=== PATIENT | female | born 1965 | race Caucasian/White ===

== ENCOUNTER 2019-05-27 12:23 | Outpatient (CLI) | payer BC, SELFPAY ==
[2019-05-27 12:46] LABS: Basophils # 0.1 10^3/uL (0.0-0.1); Basophils % 0.9 %; Eosinophils # 0.2 10^3/uL (0.0-0.8); Eosinophils % 3.2 %; Hematocrit 43.3 % (37.0-47.0); Hemoglobin 14.3 g/dL (11.5-15.3); Lymphocytes # 1.9 10^3/uL (0.8-4.8); Lymphocytes % 34.3 %; Mean Corpuscular Hemoglobin 29.6 pg (28.0-34.0); Mean Corpuscular Volume 89.6 fL (81-99); Mean Platelet Volume 11.2 fL (7.4-10.4); Monocytes # 0.8 10^3/uL (0.2-0.9); Monocytes % 14.8 %; Neutrophils # 2.5 10^3/uL (1.8-7.7); Neutrophils % 46.4 %; Nucleated Red Blood Cells % 0 %; Platelet Count 232 10^3/cmm (130-400); Red Blood Count 4.83 10^6/uL (4.1-5.3); Red Cell Distribution Width 11.9 % (12.1-15.1); White Blood Count 5.4 10^3/uL (4.0-10.0)
[2019-05-27 13:31] LABS: Alanine Aminotransferase 34 U/L (0-33); Albumin Level 4.6 g/dL (3.5-5.2); Alkaline Phosphatase 61 IU/L (35-105); Anion Gap 15.1 (5-19); Aspartate Amino Transferase 24 U/L (0-32); Blood Urea Nitrogen 16 mg/dL (6-20); C Reactive Protein 0.7 mg/L (0.0-4.9); Calcium 10.4 mg/Dl (8.6-10.0); Carbon Dioxide 27 mmol/L (22-29); Chloride 102 mmol/L (98-107); Erythrocyte Sedimentation Rate 13 mm/hr (0-15); Globulin 3.1 g/dL (1.3-4.6); Glomerular Filtration Rate 87.9 mL/min (90-130); Glucose 94 mg/dL (74-109); Potassium 4.1 mmol/L (3.5-5.1); Sodium 140 mmol/L (136-145); Total Bilirubin 0.2 mg/dL (0.15-1.2); Total Protein 7.7 g/dL (6.6-8.7)
== END 2019-05-27 12:24 | disposition home or self-care (01) ==
LOC: LAB 12:23
PROVIDERS: Family Provider Nurse Practitioner Family; PCP Nurse Practitioner Family; Visit Provider Internal Medicine Rheumatology
DX: M05.79 Rheumatoid arthritis with rheumatoid factor of multiple sites without organ or systems involvement (principal); M07.69 Enteropathic arthropathies, multiple sites
CPT/HCPCS: 80053; 85025; 85651; 86140

== ENCOUNTER → 2019-06-14 09:48 | Outpatient (BNVA) | payer BC, SELFPAY | PROVIDERS: Family Provider Nurse Practitioner Family; PCP Nurse Practitioner Family; Referring Provider Internal Medicine Rheumatology; Visit Provider Internal Medicine Rheumatology | DX: M05.9 Rheumatoid arthritis with rheumatoid factor, unspecified (principal); Z79.899 Other long term (current) drug therapy; M19.041 Primary osteoarthritis, right hand; M19.042 Primary osteoarthritis, left hand; M81.0 Age-related osteoporosis without current pathological fracture; M50.30 Other cervical disc degeneration, unspecified cervical region; M51.36 Other intervertebral disc degeneration, lumbar region; I10 Essential (primary) hypertension; Z87.891 Personal history of nicotine dependence | CPT/HCPCS: 99214 ==

== ENCOUNTER 2019-06-18 12:40 | Outpatient (CLI) | payer BC, SELFPAY ==
--- NOTE | 2019-06-18 14:45 | XR_ITS ---
WS: [id number] Bone mineral density performed on a [employer], 06/18/2019 Clinical data: exterminator steroid use Findings: The first 4 lumbar vertebral bodies demonstrated the bone mineral density of 1.387 g/cm2 for a young adult T score of 1.7. Measurement of the left hip reveals a bone mineral density of 1.123 g/cm2 with a young adult T score of 0.9. Measurement of the right hip reveals the bone mineral density of 1.136 g/cm2 for young adult T score of 1.0. XR/XR DEXA axial skeleton* [id number] Impression: Normal bone mineral density of the lumbar spine and both hips.
== END 2019-06-18 12:41 | disposition home or self-care (01) ==
LOC: RADWPI 12:46
PROVIDERS: Family Provider Nurse Practitioner Family; PCP Nurse Practitioner Family; Visit Provider Internal Medicine Rheumatology
DX: Z79.52 Long term (current) use of systemic steroids (principal)
CPT/HCPCS: 77080

== ENCOUNTER → 2019-09-15 10:10 | Outpatient (BNVA) | payer BC, SELFPAY | PROVIDERS: Family Provider Nurse Practitioner Family; PCP Nurse Practitioner Family; Visit Provider Internal Medicine Rheumatology | DX: Z79.899 Other long term (current) drug therapy (principal) | CPT/HCPCS: 36415; 80076; 82565; 85025; 85651; 86140 ==

== ENCOUNTER 2019-12-08 11:16 | Outpatient (CLI) | payer BC, SELFPAY ==
[2019-12-08 12:32] LABS: Basophils # 0.1 10^3/uL (0.0-0.1); Basophils % 1.5 %; Eosinophils # 0.4 10^3/uL (0.0-0.8); Eosinophils % 9.3 %; Hematocrit 41.7 % (37.0-47.0); Hemoglobin 13.2 g/dL (11.5-15.3); Lymphocytes # 1.7 10^3/uL (0.8-4.8); Lymphocytes % 35.6 %; Mean Corpuscular HGB Conc 31.7 g/dL (30.0-36.0); Mean Corpuscular Hemoglobin 30.9 pg (28.0-34.0); Mean Corpuscular Volume 97.7 fL (81-99); Mean Platelet Volume 11.3 fL (7.4-10.4); Monocytes # 0.6 10^3/uL (0.2-0.9); Monocytes % 13.5 %; Neutrophils % 39.9 %; Nucleated Red Blood Cells % 0 %; Platelet Count 249 10^3/cmm (130-400); Red Blood Count 4.27 10^6/uL (4.1-5.3); Red Cell Distribution Width 12.3 % (12.1-15.1); White Blood Count 4.8 10^3/uL (4.0-10.0)
[2019-12-08 13:17] LABS: Alanine Aminotransferase 21 U/L (0-33); Albumin Level 4.6 g/dL (3.5-5.2); Alkaline Phosphatase 68 IU/L (35-105); Aspartate Amino Transferase 22 U/L (0-32); Globulin 2.8 g/dL (1.3-4.6); Glomerular Filtration Rate 104.6 mL/min (90-130); Total Bilirubin 0.3 mg/dL (0.15-1.2); Total Protein 7.4 g/dL (6.6-8.7)
[2019-12-08 13:27] LABS: Erythrocyte Sedimentation Rate 21 mm/hr (0-15)
[2019-12-08 15:23] LABS: C Reactive Protein 1.2 mg/L (0.0-4.9)
== END 2019-12-08 11:17 | disposition home or self-care (01) ==
LOC: LAB 11:20
PROVIDERS: PCP Nurse Practitioner Family; Visit Provider Internal Medicine Rheumatology
DX: Z79.899 Other long term (current) drug therapy (principal)
CPT/HCPCS: 80076; 82565; 85025; 85651; 86140

== ENCOUNTER → 2019-12-13 11:03 | Outpatient (BNVA) | payer BC, SELFPAY | PROVIDERS: PCP Nurse Practitioner Family; Visit Provider Internal Medicine Rheumatology | DX: Z79.899 Other long term (current) drug therapy (principal); M05.9 Rheumatoid arthritis with rheumatoid factor, unspecified; M50.30 Other cervical disc degeneration, unspecified cervical region; M51.36 Other intervertebral disc degeneration, lumbar region; M19.041 Primary osteoarthritis, right hand; M19.042 Primary osteoarthritis, left hand; Z87.19 Personal history of other diseases of the digestive system; I10 Essential (primary) hypertension; Z87.891 Personal history of nicotine dependence | CPT/HCPCS: 99214 ==

== ENCOUNTER 2019-12-22 13:37 | Outpatient (CLI) | payer BC, SELFPAY ==
--- NOTE | 2019-12-22 13:42 | XR_ITS ---
WS: [id number] Chest 2 views, 12/22/2019 Clinical Data: high risk medication risk Comparison: Frontal chest, 07/07/2018. Findings: No nodules, masses or effusions are seen. The heart is normal. The pulmonary vascularity is not increased. No pneumonia or pneumothorax is seen. XR/XR chest 2V* [id number] Impression: Negative chest.
--- NOTE | 2019-12-22 14:34 | XR_ITS ---
WS: [id number] Right foot, 3 views, 12/22/2019 Clinical Data: rheumatoid arthritis Comparison: Right foot, 12/12/2017. Findings: No fractures or dislocations are seen. No bone destruction or erosion is noted. The joint spaces and soft tissues are normal. No periarticular demineralization or calcifications are seen. There is a small Achilles spur and a pl jessica spur. XR/XR foot RT min 3V* [id number] Impression: Negative right foot.
--- NOTE | 2019-12-22 14:34 | XR_ITS ---
WS: [id number] Left hand, 3 views, 12/22/2019 Clinical Data: rheumatoid arthritis Comparison: Left hand, 12/12/2017. Findings: No fractures or dislocations are seen. The soft tissues are unremarkable. The joint spaces are normal No periarticular demineralization or calcifications are seen. There is minimal degenerative change at the left fourth DIP joint. XR/XR hand LT min 3V* [id number] Impression: Negative for rheumatoid arthritis.
--- NOTE | 2019-12-22 14:34 | XR_ITS ---
WS: [id number] Right hand, 3 views, 12/22/2019 Clinical Data: rheumatoid arthritis Comparison: Right hand, 12/12/2017. Findings: No fractures or dislocations are seen. The soft tissues are unremarkable. The joint space s are normal No periarticular demineralization or calcifications are seen. XR/XR hand RT min 3V* [id number] Impression: Negative right hand.
--- NOTE | 2019-12-22 14:34 | XR_ITS ---
WS: [id number] Left foot, 3 views, 12/22/2019 Clinical Data: rheumatoid arthritis Comparison: Left foot, 12/12/2017. Findings: No fractures or dislocations are seen. No bone destruction or erosion is noted. The joint spaces and soft tissues are normal. No periarticular demineralization or calcifications are seen. There is a plantar spur. XR/XR foot LT min 3V* [id number] Impression: Negative left foot.
== END 2019-12-22 13:38 | disposition home or self-care (01) ==
LOC: RADWPI 13:40
PROVIDERS: Family Provider Nurse Practitioner Family; PCP Nurse Practitioner Family; Visit Provider Internal Medicine Rheumatology
DX: Z79.899 Other long term (current) drug therapy (principal); M06.9 Rheumatoid arthritis, unspecified
CPT/HCPCS: 71046; 73130; 73630

== ENCOUNTER → 2020-03-15 12:55 | Outpatient (BNVA) | payer BC, SELFPAY | PROVIDERS: PCP Nurse Practitioner Family; Visit Provider Internal Medicine Rheumatology | DX: M05.741 Rheumatoid arthritis with rheumatoid factor of right hand without organ or systems involvement (principal); Z79.899 Other long term (current) drug therapy; M05.742 Rheumatoid arthritis with rheumatoid factor of left hand without organ or systems involvement; M50.30 Other cervical disc degeneration, unspecified cervical region; M51.36 Other intervertebral disc degeneration, lumbar region; M19.041 Primary osteoarthritis, right hand; M19.042 Primary osteoarthritis, left hand | CPT/HCPCS: 36415; 80076; 82565; 85025; 85651; 86140; 99214 ==

== ENCOUNTER 2020-10-06 12:26 | Outpatient (CLI) | payer BC, SELFPAY ==
[2020-10-06 13:03] LABS: Basophils # 0.1 10^3/uL (0.0-0.1); Basophils % 1.3 %; Eosinophils # 0.2 10^3/uL (0.0-0.8); Eosinophils % 3.9 %; Hematocrit 41.6 % (37.0-47.0); Hemoglobin 13.4 g/dL (11.5-15.3); Lymphocytes # 2.1 10^3/uL (0.8-4.8); Lymphocytes % 45.6 %; Mean Corpuscular HGB Conc 32.2 g/dL (30.0-36.0); Mean Corpuscular Hemoglobin 30.5 pg (28.0-34.0); Mean Corpuscular Volume 94.5 fL (81-99); Mean Platelet Volume 10.8 fL (7.4-10.4); Monocytes # 0.6 10^3/uL (0.2-0.9); Monocytes % 11.8 %; Neutrophils # 1.73 10^3/uL (1.8-7.7); Neutrophils % 37.2 %; Nucleated Red Blood Cells % 0 %; Platelet Count 225 10^3/cmm (130-400); Red Cell Distribution Width 12.3 % (12.1-15.1); White Blood Count 4.7 10^3/uL (4.0-10.0)
[2020-10-06 13:26] LABS: Alanine Aminotransferase 23 U/L (0-33); Albumin Level 4.3 g/dL (3.5-5.2); Alkaline Phosphatase 86 IU/L (35-105); Aspartate Amino Transferase 20 U/L (0-32); C Reactive Protein 1.8 mg/L (0.0-4.9); Globulin 2.6 g/dL (1.3-4.6); Glomerular Filtration Rate 128.6 mL/min (90-130); Total Bilirubin 0.2 mg/dL (0.15-1.2); Total Protein 6.9 g/dL (6.6-8.7)
== END 2020-10-06 12:27 | disposition home or self-care (01) ==
PROVIDERS: PCP Nurse Practitioner Family; Visit Provider Internal Medicine Rheumatology
DX: M06.041 Rheumatoid arthritis without rheumatoid factor, right hand (principal); M06.042 Rheumatoid arthritis without rheumatoid factor, left hand; M19.90 Unspecified osteoarthritis, unspecified site; Z79.899 Other long term (current) drug therapy
CPT/HCPCS: 36415; 80076; 82565; 85025; 86140